=== PATIENT | female | born 1955 | race Caucasian/White ===

== ENCOUNTER 2018-05-29 09:05 | Day surgery (SDC) | payer BC ==
[~2018-05-29] VITALS: Ht 160 cm; Wt 58.2 kg
[2018-05-29 11:29] VITALS: Ht 160 cm; Wt 58.2 kg
== END 2018-05-29 18:25 | disposition home or self-care (01) ==
LOC: D.OPS 09:05
DX: N18.5 Chronic kidney disease, stage 5 (principal); D63.1 Anemia in chronic kidney disease

== ENCOUNTER 2018-06-15 06:41 | Day surgery (SDC) | payer BC ==
[~2018-06-15] VITALS: Ht 160 cm; Wt 59.0 kg
[2018-06-15 06:45] LABS: BASOPHILS 0.4 % (0-2); EOSINOPHILS 4.5 % (0-7); HEMATOCRIT 32.7 % (36.0-48.0); HEMOGLOBIN 10.4 g/dL (12-16); IMMATURE GRANULOCYTES 0.1 % (0-5); LYMPHOCYTES 13.7 % (15-50); MCH 24.3 pg (26.0-34.0); MCHC 31.8 g/dL (31.0-37.0); MCV 76.4 fL (80.0-100.0); MEAN PLATELET VOLUME 8.8 fL (7.4-10.4); NEUTROPHILS 75.3 % (40-80); PLATELET COUNT 204 10x3/uL (130-400); RBC 4.28 10x6/uL (4.00-5.40); RDW 18.5 % (11.5-14.5)
[2018-06-15 06:52] LABS: ANION GAP 13.4 mmol/L (8-16); CALCIUM 8.6 mg/dL (8.5-10.1); CARBON DIOXIDE 25.5 mmol/L (21.0-32.0); POTASSIUM - SERUM 3.9 mmol/L (3.5-5.1)
[2018-06-15 06:58] LABS: APTT 36.6 SECONDS (22.8-39.4); INR 0.96 (0.85-1.17); PROTIME 12.4 SECONDS (11.6-15.0)
[2018-06-15] MEDS ORDERED: NORMODYNE / TR200 MG (08:34)
[2018-06-15] MEDS ORDERED: GLIMEPIRIDE4 MG (08:34)
[2018-06-15] MEDS ORDERED: RESTORIL15 MG (08:35)
[2018-06-15] MEDS ORDERED: SYNTHROID175 MCG PO (08:35)
[2018-06-15] MEDS ORDERED: RANITIDINE TAB 150 (08:36)
[2018-06-15] MEDS ORDERED: NIFEDIPINE30 MG/BOT1 (08:36)
[2018-06-15] MEDS ORDERED: FUROSEMIDE40 MG (08:37)
[2018-06-15] MEDS ORDERED: FLUOXETINE (08:38)
[2018-06-15 08:49] VITALS: BP 122/79; Ht 160 cm; Wt 59.0 kg
== END 2018-06-15 14:10 | disposition home or self-care (01) ==
LOC: D.OPS 06:41
PROVIDERS: Surgery
DX: N18.9 Chronic kidney disease, unspecified (principal); Z01.812 Encounter for preprocedural laboratory examination

== ENCOUNTER 2019-02-27 16:27 | Inpatient (IN) | payer BC ==
[~2019-02-27] VITALS: Ht 160 cm; Wt 56.2 kg
[~2019-02-27 16:27] MED LIST: GLIMEPIRIDE4 MG PO; NORMODYNE / TR200 MG PO; PROCARDIA XL30 MG PO; PROZAC10 MG PO; RANITIDINE HCL150 M1 PO; RESTORIL15 MG; SYNTHROID175 MCG PO
[2019-02-27 17:10] LABS: BASOPHILS 0.2 % (0-2); EOSINOPHILS 3.4 % (0-7); HEMATOCRIT 32.8 % (36.0-48.0); HEMOGLOBIN 11.5 g/dL (12-16); LYMPHOCYTES 22.2 % (15-50); MCH 29.1 pg (26.0-34.0); MCHC 35.1 g/dL (31.0-37.0); MEAN PLATELET VOLUME 8.9 fL (7.4-10.4); MONOCYTES 5.2 % (2-11); PLATELET COUNT 219 10x3/uL (130-400); RBC 3.95 10x6/uL (4.00-5.40); RDW 13.1 % (11.5-14.5)
[2019-02-27 17:30] LABS: ALBUMIN 3.2 g/dL (3.4-5.0); ALKALINE PHOSPHATASE 91 U/L (46-116); ALT (SGPT) 15 U/L (10-68); BILIRUBIN - TOTAL 0.32 mg/dL (0.2-1.3); CALCIUM 8.5 mg/dL (8.5-10.1); CARBON DIOXIDE 25.9 mmol/L (21.0-32.0); CHLORIDE - SERUM 104 mmol/L (98-107); CREATININE - SERUM 4.2 mg/dL (0.6-1.3); SODIUM 139 mmol/L (136-145); UREA NITROGEN 50 mg/dL (7-18); eGFR NON AFRICAN AMERICAN 11 mL/min (90-120)
[2019-02-27 17:31] LABS: AMYLASE - SERUM 124 U/L (25-115); LIPASE 178 U/L (73-393)
[2019-02-27 17:37] LABS: CALC OSMOLALITY 293 mosm/kg (275-300); GLUCOSE 158 mg/dL (74-106); TROPONIN-I < 0.017 ng/mL (0.000-0.060)
--- NOTE | 2019-02-27 18:00 | NUR ---
LIGHTS DIMMED FOR COMFORT AND BLANKETS PROVIDED.
--- NOTE | 2019-02-27 18:47 | NUR ---
URINE SAMPLE SENT TO LAB AT THIS TIME. PER TREATING PROVIDER Venkata AYALA DC ORDER FOR EKG, NO LONGER NEEDED.
--- NOTE | 2019-02-27 19:02 | NUR ---
HAND OFF REPORT GIVEN TO ON-COMING NURSES LAYNE RN AND MARE RN. PT LYING IN BED, RESPIRATIONS EVEN AND UNALBORED. NO SIGNS OF DISTRESS. CALL LIGHT IN REACH, FAMILY AT BEDSIDE. PT AWARE SHE IS BEING ADMITTED TO [facility] FOR CONTINUATION OF CARE.
[2019-02-27 19:06] LABS: APPEARANCE CLEAR (CLEAR); BILIRUBIN NEGATIVE (NEGATIVE); COLOR YELLOW (YELLOW); GLUCOSE NEGATIVE (NEGATIVE); KETONE NEGATIVE (NEGATIVE); NITRITE NEGATIVE (NEGATIVE); PROTEIN 2+ mg/dL (NEGATIVE); SPECIFIC GRAVITY 1.015 (1.005-1.020); UROBILINOGEN NORMAL (NORMAL)
[2019-02-27 19:07] LABS: BACTERIA MODERATE /hpf (NONE SEEN); MUCUS <1+ /lpf (NONE SEEN); RED CELLS - URINE OCC /hpf (0-5); WHITE CELLS - URINE 0-5 /hpf (0-5)
--- NOTE | 2019-02-27 20:20 | NUR ---
REPORT CALLED TO [facility], ROOM DIRTY, WILL CALL WHEN READY
[2019-02-27] MEDS ORDERED: FEXOFENADINE H180 MG PO (20:54)
[2019-02-27 23:00] VITALS: BP 171/77; BMI 22.0
[2019-02-28] VITALS: BP 147/60
[2019-02-28 04:30] VITALS: BP 168/72
[2019-02-28 06:01] LABS: BASOPHILS 0.2 % (0-2); EOSINOPHILS 3.7 % (0-7); HEMATOCRIT 32.8 % (36.0-48.0); HEMOGLOBIN 11.2 g/dL (12-16); LYMPHOCYTES 30.4 % (15-50); MCH 28.5 pg (26.0-34.0); MCHC 34.1 g/dL (31.0-37.0); MCV 83.5 fL (80.0-100.0); MEAN PLATELET VOLUME 9.1 fL (7.4-10.4); MONOCYTES 6.6 % (2-11); NEUTROPHILS 59.1 % (40-80); PLATELET COUNT 227 10x3/uL (130-400); RBC 3.93 10x6/uL (4.00-5.40); RDW 13.3 % (11.5-14.5); WBC 4.1 10x3/uL (4.8-10.8)
[2019-02-28 06:38] LABS: ANION GAP 12.3 mmol/L (8-16); BILIRUBIN - TOTAL 0.28 mg/dL (0.2-1.3); CALCIUM 8.4 mg/dL (8.5-10.1); CARBON DIOXIDE 26.2 mmol/L (21.0-32.0); CREATININE - SERUM 3.9 mg/dL (0.6-1.3); POTASSIUM - SERUM 3.5 mmol/L (3.5-5.1); PROTEIN - SERUM 6.6 g/dL (6.4-8.2)
--- NOTE | 2019-02-28 06:55 | NUR ---
ALERT. ABLE TO VOICE NEEDS IV SITE IS CLEAR STATES SHE HAS URINATED 6 TIMES THROUGH THE NIGHT. MOVES ALL EXTREMITIES BUT STATES SHE IS WEAK. CL IN REACH. DENIES ANY CURRENT NEEDS
[2019-02-28 08:32] VITALS: BP 146/81
--- NOTE | 2019-02-28 09:48 | NUR ---
NOTIFIED LAB OF URINE CULTURE ORDER AND IT WAS COLLECTED LAST NIGHT.
[2019-02-28 11:50] VITALS: BP 126/70
[2019-02-28 13:31] VITALS: Ht 160 cm; Wt 56.2 kg
[2019-02-28 15:26] VITALS: BP 179/87
--- NOTE | 2019-02-28 17:30 | NUR ---
SHE DENIES ANY NEEDS EXCEPT IV SITE WAS ITCHING SO PAPERTAPE WAS APPLIED AND COBAN WHICH HELPED. NO RASH OR REDDNESS NOTED AND IT HAD GOOD BLOOD RETURN. CL IN REACH. BRP. RESP EVEN WITHOUT LABOR NO CHANGE IN CONDITION
--- NOTE | 2019-02-28 18:52 | MORECARE ---
CASE MANAGEMENT DISCHARGE SUMMARY PATIENT: NORMA HILLIARD UNIT: [id number] ADM DATE: 02/27/19 AGE: 63 : 54 SEX: F ROOM/BED: D.6124 AUTHOR: JUSTIN,DOC PHYSICIAN: REFERRING PHYSICIAN: CONNER BRANCH MD DATE OF SERVICE: 02/28/19 Discharge Plan Patient Name: NORMA HILLIARD Facility: [facility]:[place] : 1955 Planned Disposition: Home Anticipated Discharge Date: Discharge Date: Expected LOS: Initial Reviewer: [email or web address] Initial Review Date: 02/27/2019 Generated: 02/28/19 7:52 pm Comments DCP- Discharge Planning Updated by [email or web address]: Palma Kohler on 02/28/19 5:[address] CM MET WITH THE PATIENT AT THE BEDSIDE. EXPLAINED MY ROLE. RECEIVED PERMISSION TO PROCEED WITH ASSESSMENT FOR DISCHARGE NEEDS. THE PATIENT PLANS TO RETURN TO HOME AT DISCHARGE. HER , EMILY, WILL PROVIDE TRANSPORTATION AND ASSIST HER. SHE IS NOT UTILIZING ANY COMMUNITY OR HOME HEALTH SERVICES. SHE DOES NOT ANTICIPATES ANY NEED AT DISCHARGE. HER PCP IS DR JAYCEE BEARD IN [place], [place]. PHARMACY - [facility] ON [address] HAS NO DME. IS INDEPENDENT IN HER CARE. IF SHE NEEDS ASSIST HER WILL HELP HER. THEREFORE SHE DENIES ANY NEEDS AT THIS TIME. CM TO FOLLOW TO ASSIST IF NEEDED. DCPIA - Discharge Planning Initial Assessment Updated by [email or web address]: Palma Kohler on 02/28/19 6:51 pm * Is the patient Alert and Oriented? Yes * How many steps to enter\exit or inside your home? TWO * PCP JAYCEE BEARD- [facility]- [place], [place] * Pharmacy [facility] [address] * Preadmission Environment Home with Family * ADLs Independent * Equipment None * Other Equipment N/A * List name and contact numbers for known caregivers / representatives who currently or will assist patient after discharge: EMILY HILLIARD- - [phone] * Verbal permission to speak to the caregivers and representatives has been obtained from the patient. No * Community resources currently utilized None * Please name any agencies selected above. N/A * Additional services required to return to the preadmission environment? No * Can the patient safely return to the preadmission environment? Yes * Has this patient been hospitalized within the prior 30 days at any hospital? No Patient Name: NORMA HILLIARD Page [phone] at 1852 All edits/amendments must be made on the electronic document DICTATION DATE: 02/28/191851 PACKAGE WRAPPER: JOSH 02/28/191851 RPT#: [id number] DC DATE: STATUS: ADM IN [facility] [address] [place] [address] END OF REPORT
--- NOTE | 2019-02-28 19:58 | NUR ---
PT IN BED. DENIES NEEDS AT THIS TIME.
[2019-02-28 20:00] VITALS: BP 201/95
--- NOTE | 2019-02-28 20:20 | NUR ---
INFORMED OF ELEVATED BP 201/95 BY MATERIAL REQUIREMENTS WORKER RENAL STEAM TABLE ATTENDANT PAGED
[2019-03-01] VITALS: BP 182/81
[2019-03-01 04:30] VITALS: BP 181/82
[2019-03-01 04:30] LABS: ANION GAP 12.1 mmol/L (8-16); CARBON DIOXIDE 24.4 mmol/L (21.0-32.0); CREATININE - SERUM 3.4 mg/dL (0.6-1.3); POTASSIUM - SERUM 3.5 mmol/L (3.5-5.1)
--- NOTE | 2019-03-01 04:55 | NUR ---
INFORMED OF ELEVATED BP 181/82 ATTEMPTED TO ADMINISTER HYDRALIZINE PER ORDER HOWEVER PT REFUSED. ALSO INFOMRED OF LOW BLOOD GLUCOSE 63 OFFERED PT A SNACK BUT SHE REFUSED. PT VOCALIZED CONCERNS REGARDING BLOOD PRESSURE AND HER MEDICATION. ATTEMPTED TO ANSWER QUESTIONS. PT SEEMS SATISFIED AT THIS TIME.
--- NOTE | 2019-03-01 05:16 | NUR ---
PT STATES THAT SHE IS LEAVING TODAY. SHE SAYS THAT WE ARE CAUSING HARM TO HER AND THAT SHE DID NOT COME TO THE HOSPITAL FOR HER BP. SHE IS UPSET THAT SHE CANNOT GET HER BP MEDS UNTIL 0900.
[2019-03-01] MEDS ORDERED: LEVOFLOXAC250 MG/50 PO (06:59)
--- NOTE | 2019-03-01 07:00 | NUR ---
REPORT RECEIVED. SHE IS ALERT ABLE TO VOICE NEEDS, DENIES ANY CURRENT ONES. IV SITE IS CLEAR WITH NS AT 100CC/HR. RESP EVEN WITHOUT LABOR. STATES SHE IS READY TO GO HOME TODAY.
[2019-03-01 07:50] VITALS: BP 140/83
[2019-03-01] MEDS ORDERED: FUROSEMIDE40 MG PO (07:59)
[2019-03-01] MEDS ORDERED: LEVOFLOXACIN500 MG PO (08:09)
--- NOTE | 2019-03-01 11:00 | NUR ---
DISCHARGE INSTRUCTIONS EXPLAINED IN DETAIL. SHE IS AWARE OF NEW MED AND APPOINTMENT DATE/TIME. IV D/C WITH CATH INTACT, NO BLEEDING AND SITE IS COVERED WITH GUAZE AND PAPERTAPE. FAMILY IS HERE TO TAKE HER HOME AND SHE DECLINED A W/C TRANSPORT. SHE IS STABLE WITH NO CHANGES NOTED.
--- NOTE | 2019-03-04 09:21 | MORECARE ---
CASE MANAGEMENT DISCHARGE SUMMARY PATIENT: NORMA HILLIARD UNIT: [id number] ADM DATE: 02/27/19 AGE: 63 : 54 SEX: F ROOM/BED: D.2229 AUTHOR: JUSTIN,DOC PHYSICIAN: REFERRING PHYSICIAN: CONNER BRANCH MD DATE OF SERVICE: 03/04/19 Discharge Plan Patient Name: NORMA HILLIARD Facility: [facility]:[place] : 1955 Planned Disposition: Home Anticipated Discharge Date: 03/01/19 Discharge Date: 03/01/2019 Expected LOS: 2 Initial Reviewer: [email or web address] Initial Review Date: 02/27/2019 Generated: 03/04/19 10:21 am Comments DCP- Discharge Planning Updated by [email or web address]: Palma Kohler on 02/28/19 5:[address] CM MET WITH THE PATIENT AT THE BEDSIDE. EXPLAINED MY ROLE. RECEIVED PERMISSION TO PROCEED WITH ASSESSMENT FOR DISCHARGE NEEDS. THE PATIENT PLANS TO RETURN TO HOME AT DISCHARGE. HER , EMILY, WILL PROVIDE TRANSPORTATION AND ASSIST HER. SHE IS NOT UTILIZING ANY COMMUNITY OR HOME HEALTH SERVICES. SHE DOES NOT ANTICIPATES ANY NEED AT DISCHARGE. HER PCP IS DR JAYCEE BEARD IN [place], [place]. PHARMACY - [facility] ON [address] HAS NO DME. IS INDEPENDENT IN HER CARE. IF SHE NEEDS ASSIST HER WILL HELP HER. THEREFORE SHE DENIES ANY NEEDS AT THIS TIME. CM TO FOLLOW TO ASSIST IF NEEDED. DCPIA - Discharge Planning Initial Assessment Updated by [email or web address]: Palma Kohler on 02/28/19 6:51 pm * Is the patient Alert and Oriented? Yes * How many steps to enter\exit or inside your home? TWO * PCP JAYCEE BEARD- [facility]- [place], [place] * Pharmacy [facility] [address] * Preadmission Environment Home with Family * ADLs Independent * Equipment None * Other Equipment N/A * List name and contact numbers for known caregivers / representatives who currently or will assist patient after discharge: EMILY HILLIARD- - [phone] * Verbal permission to speak to the caregivers and representatives has been obtained from the patient. No * Community resources currently utilized None * Please name any agencies selected above. N/A * Additional services required to return to the preadmission environment? No * Can the patient safely return to the preadmission environment? Yes * Has this patient been hospitalized within the prior 30 days at any hospital? No Last DP export: 02/28/19 5:52 p Patient Name: NORMA HILLIARD Page [phone] at 0921 All edits/amendments must be made on the electronic document DICTATION DATE: 03/04/19919 TARIFF COMPILING CLERK: JOSH 03/04/19919 RPT#: [id number] DC DATE:03/01/19 STATUS: DIS IN [facility] [address] [place] [address] END OF REPORT
== END 2019-03-01 11:16 | disposition home or self-care (01) | DRG 682 ==
LOC: D.ER 16:27 → D.M2 19:18
PROVIDERS: Emergency Medicine; Family Medicine; ADMIT Internal Medicine; ATTEND Internal Medicine
DX: N17.9 Acute kidney failure, unspecified (principal); E43 Unspecified severe protein-calorie malnutrition; N39.0 Urinary tract infection, site not specified; I12.0 Hypertensive chronic kidney disease with stage 5 chronic kidney disease or end stage renal disease; K57.92 Diverticulitis of intestine, part unspecified, without perforation or abscess without bleeding; N18.5 Chronic kidney disease, stage 5; E11.22 Type 2 diabetes mellitus with diabetic chronic kidney disease; K21.9 Gastro-esophageal reflux disease without esophagitis; G47.00 Insomnia, unspecified; R51 Headache; F32.9 Major depressive disorder, single episode, unspecified; F41.9 Anxiety disorder, unspecified; Z87.891 Personal history of nicotine dependence; Z68.21 Body mass index [BMI] 21.0-21.9, adult

== ENCOUNTER 2019-03-22 06:02 | Day surgery (SDC) | payer BC ==
[~2019-03-22] VITALS: Ht 160 cm; Wt 57.2 kg
[~2019-03-22 06:02] MED LIST changes: +FEXOFENADINE H180 MG PO; +FUROSEMIDE40 MG PO; +LEVOFLOXAC250 MG/50 PO; +LEVOFLOXACIN500 MG PO
[2019-03-22 06:47] LABS: CALCIUM 8.6 mg/dL (8.5-10.1); CARBON DIOXIDE 25.2 mmol/L (21.0-32.0); INR 0.93 (0.85-1.17); POTASSIUM - SERUM 4.2 mmol/L (3.5-5.1)
[2019-03-22 07:42] LABS: BASOPHILS 0.5 % (0-2); HEMATOCRIT 32.1 % (36.0-48.0); IMMATURE GRANULOCYTES 0.2 % (0-5); MCH 28.7 pg (26.0-34.0); MCHC 34.3 g/dL (31.0-37.0); MCV 83.8 fL (80.0-100.0); MEAN PLATELET VOLUME 8.9 fL (7.4-10.4); NEUTROPHILS 70.3 % (40-80); PLATELET COUNT 189 10x3/uL (130-400); RBC 3.83 10x6/uL (4.00-5.40); RDW 13.7 % (11.5-14.5); WBC 6.4 10x3/uL (4.8-10.8)
[2019-03-22] MEDS ORDERED: VITAMIN D250000 UNIT PO (08:31)
[2019-03-22 08:33] VITALS: BP 165/87; BMI 22.3
[2019-03-22] MEDS ORDERED: HYDROCODON-ACE1 EAC7 PO (14:05)
[2019-03-22 14:33] VITALS: Ht 160 cm; Wt 57.2 kg
--- NOTE | 2019-04-02 10:49 | OP ---
PATIENT NAME: NORMA HILLIARD MEDICAL RECORD: [id number] :53 [facility] DATE: SURGEON: LORENA LIMA MD DATE OF OPERATION: 03/22/2019 REFERRING PHYSICIAN: Dr. Anuj Li PREOPERATIVE DIAGNOSIS: Chronic kidney disease V. POSTOPERATIVE DIAGNOSIS: Chronic kidney disease V. OPERATION PERFORMED: Laparoscopic implantation of peritoneal dialysis catheter. SURGEON: Lorena Lima MD PREOPERATIVE NOTE: Ms. Hilliard is a 63-year-old white female with failing kidneys in need of peritoneal dialysis catheter implantation. She is brought to the hospital as an outpatient for that to be done today. Under general endotracheal anesthesia in supine position, the patient was prepped and draped in sterile manner. The patient had had site marked for possible exit of her new catheter and this was in the left upper quadrant and when I measured it seemed that it would be better slightly, but generally in that location I had a Merit classic Flex-Neck straight dual cuff catheter, that is a catheter without coil and opted to use that. Measurements were made on the anterior abdominal wall and site for a transverse incision was identified where the deep cuff would be implanted into the rectus sheath. The incision was made and carried down to the rectus sheath. Hemostasis was obtained with electrocautery. The abdomen was entered and then with a 5 mm diameter Optiview Xcel port with a 5 diameter mm 0-degree laparoscope in place. Pneumoperitoneum was established with carbon dioxide and a second 5-mm port placed in the left lower quadrant. The cannula was inserted then through the anterior rectus sheath and through the rectus muscle and tunneled downward towards the symphysis pubis and an anterior or extraperitoneal plane and watched with the laparoscope and then made to enter the peritoneal space. A dilator was passed and then the catheter was inserted. The deep cuff was buried in the rectus muscle just under the rectus sheath and a pursestring suture of 0 Vicryl was placed. The catheter was flushed and saline was noted to flush easily through the catheter, indicating a pursestring suture was not too tight. A Igor tunneler was then used to place the catheter in a tunnel directed gentle curve towards the proposed exit site in the left upper quadrant. The catheter was then attached to transfer device and flushed with 1000 cc of saline which then with the bag placed on the floor was essentially all returned and recovered. The catheter was then heparin locked and the transfer set capped. The incision was closed with interrupted 3-0 Vicryl and a running 4-0 Stratafix. The ports were removed after the carbon dioxide was allowed to escape. These wounds were all infiltrated with 0.25% Marcaine without epinephrine and the 2 stab incisions closed with interrupted inverted subcuticular 3-0 Vicryl and all 3 incisions sealed with Dermabond glue and Maxorb AG and dressed with Cavilon and Tegaderm. The catheter at the exit site was dressed with a chlorhexidine Biopatch and Tegaderm and then coiled and covered with a 4 x 4 Medipore. The patient was then awakened and in stable condition taken back to the recovery room. Blood loss during the operation was none or 0. No drains were used. All sponges, instruments and needles were accounted for. No surgical specimen was OPERATIVE REPORT [id number] NORMA HILLIARD submitted for histopathology. I will make arrangements for her to return to see me in my office in about 2 weeks. She needs to go to dialysis to have her catheter flushed next week. She will continue all of her same medications. She is given a prescription for [place] 5/325 one p.o. q.4 hours p.r.n. pain. She will return to activities as tolerated and continue her renal diabetic diet. TRANSINT:[id number] Voice Confirmation ID: [id number] DOCUMENT ID: [id number] CC: Peritoneal dialysis at [facility] [phone] LORENA LIMA MD at 1049 CC: PERITONEAL DIALYSIS and ANUJ LI MD [id number] DICTATION DATE: 03/22/191417 PREMIUM NOTE INTEREST CALCULATOR CLERK: 03/22/192044 [facility] 03/22/19 [facility] [address] [place] [place] [id number]
== END 2019-03-22 17:00 | disposition home or self-care (01) ==
LOC: D.OPS 06:02
PROVIDERS: ATTEND Internal Medicine
DX: E11.22 Type 2 diabetes mellitus with diabetic chronic kidney disease (principal); I12.0 Hypertensive chronic kidney disease with stage 5 chronic kidney disease or end stage renal disease; N18.5 Chronic kidney disease, stage 5; K21.9 Gastro-esophageal reflux disease without esophagitis; Z86.73 Personal history of transient ischemic attack (TIA), and cerebral infarction without residual deficits